=== PATIENT | female | born 1940 | race African-American/Black ===

== ENCOUNTER 2020-09-16 18:45 | Emergency (ER) | payer MEDICARE ==
[~2020-09-16] VITALS: Ht 165.1 cm; Wt 60.0 kg
[2020-09-16] MEDS ORDERED: ACETAMINOPHEN 325MG TABLET PO ONE (20:45)
[2020-09-16] MEDS ORDERED: SODIUM CHLORIDE 0.9% 500 ML IV ONE (20:45)
[2020-09-16 20:53] LABS: BASOPHILS % 0.4 % (0.0-2.0); EOSINOPHILS % 0.3 % (0.0-5.0); HEMATOCRIT. 35.3 % (36.0-48.0); HEMOGLOBIN. 11.9 g/dL (12.0-16.0); LYMPHOCYTES % 23.1 % (20.0-50.0); MEAN CORPUSCULAR HEMOGLOBIN 29.9 pg (28.0-32.0); MEAN CORPUSCULAR VOLUME 88.7 fL (81.0-99.0); MEAN PLATELET VOLUME 8.3 fl (7.4-10.4); MONOCYTES % 7.7 % (2.0-8.0); NEUTROPHILS % 68.5 % (40.0-76.0); PLATELET 159 x1000/uL (130-400); RED BLOOD CELL COUNT 3.98 mill/uL (4.2-5.4); RED CELL DISTRIBUTION WIDTH 13.6 % (11.6-14.6)
[2020-09-16 20:59] LABS: CHLORIDE 106 mEq/L (98-107)
[2020-09-16] MEDS ORDERED: IOHEXOL-300 100 ML BOTTLE ONE (22:34)
[2020-09-16] MEDS ORDERED: AMOXICILLIN/POTASSIUM CLAVULANATE 875/125MG TAB PO ONE (22:45)
[2020-09-16] MEDS ORDERED: AMOX-424 MT (22:48)
[2020-09-16 23:10] VITALS: BP 142/61
== END 2020-09-16 23:13 | disposition home or self-care (01) ==
LOC: ER 18:45
DX: K11.21 Acute sialoadenitis (principal); I10 Essential (primary) hypertension; E11.9 Type 2 diabetes mellitus without complications; Z90.710 Acquired absence of both cervix and uterus
CPT/HCPCS: 36415; 70487; 80053; 85025; 96360; 99285; J7040; Q9967

== ENCOUNTER 2020-09-18 12:34 | Emergency (ER) | payer MEDICARE ==
[~2020-09-18] VITALS: Ht 165.1 cm; Wt 58.0 kg
[~2020-09-18 12:34] MED LIST: AMOX-424 MT
[2020-09-18] MEDS ORDERED: CETIRIZINE 10MG TABLET PO STA (13:47)
[2020-09-18] MEDS ORDERED: FAMOTIDINE 20MG TABLET PO ONE (14:00)
[2020-09-18] MEDS ORDERED: CETI10TA6 MT (14:36)
[2020-09-18] MEDS ORDERED: CLIN300C12 MT (14:36)
[2020-09-18 14:59] VITALS: BP 157/71
== END 2020-09-18 14:59 | disposition home or self-care (01) ==
LOC: ER 12:34
DX: L27.1 Localized skin eruption due to drugs and medicaments taken internally (principal); E11.9 Type 2 diabetes mellitus without complications; Z90.710 Acquired absence of both cervix and uterus; T36.0X5A Adverse effect of penicillins, initial encounter; T36.1X5A Adverse effect of cephalosporins and other beta-lactam antibiotics, initial encounter; Y92.018 Other place in single-family (private) house as the place of occurrence of the external cause
CPT/HCPCS: 93005; 99283